=== PATIENT | male | born 1960 | race Caucasian/White ===

== ENCOUNTER → 2019-01-08 | Outpatient (CLI) | payer BC ==
--- NOTE | 2019-01-08 15:52 | PCVCIMAG ---
APPROVED REPORT Imaging Protocol: Rest Tc-99m/Stress Tc-99m 1 day Study performed: 01/08/2019 10:04:25 Indication: Chest pain, Elevated Calcium Score Patient Location: Out-Patient Stress Nurse: Asuncion Nolen RN, Fariha Milan RN SC Tech:Phoenix Sanchez SCTCB Ht: 5 ft 7 in Wt: 211 lbs BSA: 2.07 m2 HR: 67 bpm BP: 136/77 mmHg BMI: 33.04 Rhythm: Sinus Rhythm, Incomplete RBBB Medical History Medical History: Age, Hyperlipidemia, HTN, Family Hx of CAD Medications: ASA, Welchol, Valium, Dilauded, Oxycodone, Protonix, Prednisone, Carafate, Testosterone Allergies: Latex, mulitple others not related Exercise History: Physically active Resting Data Rest SPECT myocardial perfusion imaging was performed in supine position 45 minutes following the intravenous injection of 10.4 mCi of Tc-99m Sestamibi. Time of rest injection: 1015 Date: 01/08/2019 Administration Route: IV Administration Site: Right Wrist Exercise Stress At peak stress, the patient was injected intravenously with 32.6mCi of Tc-99m Sestamibi. Time of stress injection: 1130 Date: 01/08/2019 Administration Route: IV Administration Site: Right Wrist Patient continued to exercise for 10 minute(s). Gated Stress SPECT was performed 45 minutes after stress injection. The images were gated to evaluate regional wall motion and calculate left ventricular ejection fraction. Stress Test Details Stress Test: Exercise stress testing was performed using a Umesh protocol. HRMax Heart Rate (APMHR): 160 bpm Resting HR: 67 bpmTarget HR (85% APMHR): 136 bpm Max HR Achieved: 157 bpm % of APMHR: 98 Recovery HR: 72 bpm HR response to stress: Normal HR response to stress BP Resting BP: 136/77 mmHg Max BP: 218/90 mmHg Recovery BP: 163/60 mmHg BP response to stress: Normal blood pressure response to stress. ECG Resting ECG: Sinus Rhythm, Incomplete RBBB Stress ECG: Sinus Tachycardia, Incomplete RBBB ST Change: Non-ischemic Arrhythmia: PVC's Recovery ECG: Sinus Rhythm, Incomplete RBBB Recovery ST Change: None Recovery ST Deviation: 0 mm Clinical Reason for Termination: Maximal effort, Dyspnea Stress Symptoms: Dyspnea Exercise duration: 10 min 25 sec Exercise capacity: 13.7 METs Overall Exercise Capacity for Age: Good Scale: Active Angina Score: None Symptoms resolved during recovery. Study Quality Study: Good Study Data Post stress, the left ventricular ejection was 58%.. SSS: 4 SRS: 2 SDS: 2 TID = 0.94. Perfusion There is a medium area of mildly reduced uptake in the apical segment of the anterolateral wall which is seen on the stress images and normalizes on the resting images. This area thickens and moves normally and is most consistent with ischemia. Wall Motion Normal left ventricular wall motion. Nuclear Conclusion ECG Findings: negative for ischemia Clinical Findings: non-ischemic Nuclear Findings: positive for ischemia Exercise Capacity: normal Left Ventricular Function: normal This study reveals a reversible defect in the distal apical lateral segment, suggestive for ischemia. There is normal global and segmental LV systolic function.
== END | disposition home or self-care (01) ==
LOC: PCVCIMAG 10:23
PROVIDERS: ATTEND Internal Medicine Cardiovascular Disease
DX: R93.1 Abnormal findings on diagnostic imaging of heart and coronary circulation (principal); R07.9 Chest pain, unspecified; E78.5 Hyperlipidemia, unspecified; I10 Essential (primary) hypertension; Z91.040 Latex allergy status; Z88.6 Allergy status to analgesic agent
CPT/HCPCS: 78452; 93017; A9500